=== PATIENT | male | born 1975 | race Caucasian/White ===

== ENCOUNTER 2018-12-17 01:56 | Emergency (ER) | payer BC ==
[2018-12-17 02:22] VITALS: BP 146/97
--- NOTE | 2018-12-17 02:27 | ED Physician Documentation ---
Headache - HISTORIAN Historian: patient - HPI Stated Complaint: headache and dizziness Chief Complaint: Headache Onset: days ago Timing: intermittent episodes New Gradual Onset: Yes Exposure To: none Severity: severe Quality: tightness (neck muscles) Associated Symptoms: dizziness. denies: fever, chills, sweating, problems with vision, sensitivity to light, nausea, vomiting, neck pain, stiffness, speech problems, weakness, trouble walking, tingling, light-headedness Further Comments: yes (42 year old male patient presents with complaint of intermittent headaches for the past 2-3 days. Patient reports he was seen by PCP, work up pending. C/O headache tonight which he had to leave work for - took tylenol at 1400 today. Describes headache as starting in the neck and wrapping around his head. Was seen by chiropractor this week "My neck was out" .) - ROS NEURO/PSYCH: denies: confusion, anxiety, depression, fainting, other EYES/ENT: denies: sore throat, difficulty swallowing, sinus pain, drainage, other CVS/RESP: none GI/: denies: abdominal pain, diarrhea, problems urinating, incontinence, other MS/SKIN/LYMPH: denies: muscle aches, back pain, rash, skin lesions, swollen glands, other all systems neg except as marked: Yes - PAST HX Medical History: no pertinent history Allergies/Adverse Reactions: Allergies Allergy/AdvReac Type Severity Reaction Status Date / Time No Known Drug Allergies Allergy Verified 12/17/18 02:21 - SOCIAL HX Smoking History: cigarettes - Family HX Family History: denies: none - VITAL SIGNS Vital Signs: Vital Signs Temp Pulse Resp BP Pulse Ox 98 F 79 16 146/97 97 12/17/18 02:08 12/17/18 02:08 12/17/18 02:08 12/17/18 02:08 12/17/18 02:08 - REVIEWED ASSESSMENTS Nursing Assessment Reviewed: Yes Vitals Reviewed: Yes ED Results Lab/Radiology - Orders Orders: ED Orders Category Date Time Status Cyclobenzaprine HCl [Flexeril] Med 12/17/18 02:24 Once 10 mg PO NOW ONE Ketorolac Tromethamine [Toradol] Med 12/17/18 02:24 Once 60 mg IM NOW ONE Headache Physical Exam - EXAM General Appearance: mild distress EENT: no facial swelling, eyes nml inspection, PERRL, nml ENT, pharynx nml Neck: normal inspection, other (tenderness in paraspinous muscles at C4-6; ) Respiratory: no resp distress, chest non-tender, breath sounds normal CVS: reg. rate & rhythm, heart sounds nml Abdomen: non-tender, no organomegaly, nml bowel sounds, no distention Skin: color nml, no rash, warm, nml palp., dry - NEURO/PSYCH Higher Functions: alert, oriented x3, nml speech, mood/affect nml Cranial: nml as tested, no evidence of acute CVA Cerebellar: nml as tested, nml gait Sensorimotor: motor nml, sensation nml Discharge Clincal Impression: Cervical paraspinous muscle spasm Headache Qualifiers: Headache type: tension-type Headache chronicity pattern: acute headache Intractability: not intractable Qualified Code(s): G44.209 - Tension-type headache, unspecified, not intractable Referrals: Harrison Leon MD [Primary Care Provider] - 2 Days Additional Instructions: You may use Tylenol every 4hour as needed for pain. Limit your dose to less than 4 G per day. You may want to try massage, over the counter lidocaine patches, biofreeze, hardik manley or aspercream . Alternate with Ibuprofen 600-800mg three times a day with food as needed. Do not take for more than 5 days in a row. 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 Follow up with PCP this week for lab results and BP check. Take your BP 4 times a day and record take your blood pressure log to your primary care doctor. Condition: Stable Disposition: 01 HOME, SELF-CARE Decision to Admit: NO Decision Time: 02:30
[2018-12-17] MEDS: KETOROLAC TROMETHAMINE 60 MG/2 ML VIAL IM ONE (02:30)
[2018-12-17] MEDS: CYCLOBENZAPRINE HCL 10 MG TABLET PO ONE (02:33)
== END 2018-12-17 02:36 | disposition home or self-care (01) ==
LOC: ED 01:56
DX: G44.209 Tension-type headache, unspecified, not intractable (principal); M62.838 Other muscle spasm
CPT/HCPCS: 96372; 99284; J1885